=== PATIENT | female | born 1995 | race Caucasian/White ===

== ENCOUNTER 2019-06-06 18:45 | Emergency (ER) | payer SELFPAY ==
[2019-06-06 18:53] VITALS: TEMP 98.4; BMI 19.3
--- NOTE | 2019-06-06 18:53 | PDOC ---
Rapid Medical Evaluation Time Seen by Provider: 06/06/19 18:50 Medical Evaluation: Allergies Allergy/AdvReac Type Severity Reaction Status Date / Time No Known Allergies Allergy Verified 06/06/19 18:50 06/06/19 18:50 I have performed a brief in-person evaluation of this patient. The patient presents with a chief complaint of: 5 weeks w/ vag bleed x 20 minutes w/ some abd pain. Had 1st today but was not bleeding at time of appt per pt. Did not have an US done. No abd pain, dysuria, n/v/f/c Pertinent physical exam findings:stable and in NAD I have ordered the following:labs/UA/US The patient will proceed to the ED for further evaluation Discharge Disposition - Diagnosis First trimester bleeding - Referrals - Patient Instructions - Post Discharge Activity
--- NOTE | 2019-06-06 20:07 | PDOC ---
History of Present Illness - General Chief Complaint: Vaginal Bleeding Stated Complaint: 5 WKS /BLEEDING Time Seen by Provider: 06/06/19 18:50 - History of Present Illness Initial Comments: 06/06/19 20:07 HPI: 23 y/o F 5 weeks gestation by LMP 04/24/19 who had her first visit today presenting with vaginal bleeding that started 3hrs prior to arrival. She said the blood was brownish and the first episode got her underwear and pants wet. 2nd episode was scant blood. No clots or bright red blood. She also reports 1 week of BL lower abd cramping with. Pain is tolerable. She denies fever, chills, ENRIQUE, LH, chest pain, SOB, n/v, dysuria, change in BMs. PMHx: as noted above ROS: as noted SHx: Denies tobacco use; no alcohol use; no rec drugs Allergies: NKDA ROS: GENERAL/CONSTITUTIONAL: No fever or chills. No weakness. HEAD, EYES, EARS, NOSE AND THROAT: No change in vision. No ear pain or discharge. No sore throat. CARDIOVASCULAR: No chest pain or shortness of breath RESPIRATORY: No cough, wheezing, or hemoptysis. GASTROINTESTINAL: No nausea, vomiting, diarrhea or constipation. GENITOURINARY: No dysuria, frequency, or change in urination. MUSCULOSKELETAL: No joint or muscle swelling or pain. No neck or back pain. SKIN: No rash NEUROLOGIC: No headache, vertigo, loss of consciousness, or change in strength/ sensation. ENDOCRINE: No increased thirst. No abnormal weight change HEMATOLOGIC/LYMPHATIC: No anemia, easy bleeding, or history of blood clots. ALLERGIC/IMMUNOLOGIC: No hives or skin allergy. PE: GENERAL: Awake, alert, and fully oriented, no acute distress HEAD: No signs of trauma, normocephalic, atraumatic EYES: EOMI, sclera anicteric, conjunctiva clear ENT: Auricles normal inspection, hearing grossly normal, nares patent, oropharynx clear without exudates. Moist mucosa NECK: Normal ROM, no lymphadenopathy LUNGS: No increased work of breathing, symmetrical chest rise, clear to auscultation bilaterally, no wheezes, crackles or rhonchi HEART: Regular rate, regular rhythm, normal S1 and S2, no murmur, peripheral pulses 2+ and equal bilaterally. ABDOMEN: Soft, nondistended, mild RLQ and suprapubic discomfort, normoactive bowel sounds. No guarding, no rebound. No masses. No CVAT GENITOURINARY: Nml appearing external genitalia, with absent lesions. Vaginal vault with brown blood, no discharge. Cervical os closed. Neg CMT on BM. Neg adenexal ttp, or mass palpated. MUSCULOSKELETAL: Normal inspection, FROM NEUROLOGICAL: Cranial nerves II through XII grossly intact. Normal speech, normal gait, no focal sensorimotor deficits SKIN: Warm, Dry, normal turgor, no rashes or lesions noted Past History - Past Medical History Allergies/Adverse Reactions: Allergies Allergy/AdvReac Type Severity Reaction Status Date / Time No Known Allergies Allergy Verified 06/06/19 18:50 Asthma: Yes COPD: No - Immunization History Immunization Up to Date: Yes - Psycho Social/Smoking Cessation Hx Smoking History: Never smoked Hx Alcohol Use: No Drug/Substance Use Hx: No *Physical Exam - Vital Signs Last Vital Signs Temp Pulse Resp BP Pulse Ox 98.4 F 83 18 125/87 100 06/06/19 18:51 06/06/19 18:51 06/06/19 18:51 06/06/19 18:51 06/06/19 18:51 ED Treatment Course - LABORATORY CBC & Chemistry Diagram: 06/06/19 20:45 06/06/19 20:45 Medical Decision Making - Medical Decision Making 06/07/19 00:19 23 y/o F 5 weeks gestation by LMP 04/24/19 who had her first visit today presenting with vaginal bleeding that started 3hrs prior to arrival associated with 1 week of BL lower abd cramping. VSS, AF. PE with mild RLQ and suprapubic discomfort on palpation. DDx includes uti, threatened . -t&s, cbc, cmp, hcg quant -tvus -ivf, ofirmev 06/07/19 00:37 labs unremarkable patient feels improved TVUS with 6week gestation without cardiac activity likely 2/2 early ; recommending followup patient agrees with plan and no other questions at this time Discharge - Discharge Information Problems reviewed: Yes Clinical Impression/Diagnosis: First trimester bleeding Condition: Stable Disposition: HOME - Follow up/Referral - Patient Discharge Instructions Patient Printed Discharge Instructions: DI for Vaginal Bleeding During Additional Instructions: Additional Instructions: Please return to the emergency department with any new or worsening symptoms or concerns including persistent bleeding, worsening pain, fainting. Please follow up with your Obstretician within 1 week for repeat ultrasound to evaluate for a heart rate You may take tylenol as needed for pain control - Post Discharge Activity
--- NOTE | 2019-06-06 20:52 | PDOC ---
Documentation entered by Liliana Randall SCRIBE, acting as scribe for Erica Klein MD. Erica Klein MD: This documentation has been prepared by the theresaibPrakash chu Lincy, SCRIBE, under my direction and personally reviewed by me in its entirety. I confirm that the documentation accurately reflects all work, treatment, procedures, and medical decision making performed by me. Attending Attestation - Resident Resident Name: Pratima Troy - ED Attending Attestation I have performed the following: I have examined & evaluated the patient, The case was reviewed & discussed with the resident, I agree w/resident's findings & plan, Exceptions are as noted - HPI HPI: 06/06/19 20:54 The patient is a 23-year-old female, , currently 5 weeks by LMP, with no reported past medical history who presents to the emergency department with vaginal spotting since 6:00 pm. The patient reports she had 2 episodes of brownish vaginal bleeding today, denies passing clot or bright red blood. The patient reports associated symptoms of bilateral abdominal cramping for the past week. Denies nausea, vomiting, headache. Allergies: NKA. - Physicial Exam PE: 06/06/19 20:51 With she thinks that she fainted so was the awake alert no acute distress lungs are clear bilaterally heart is regular with any murmurs rubs or gallops abdomen is soft and nontender no rebound no guarding no CVA tenderness pelvic exam there is scant brownish discharge with mucus in the vaginal vault cervical Oz appears to be closed there is mild right adnexal tenderness no palpable adnexal masses. Skin is warm and dry patient is awake alert and oriented x3 - Medical Decision Making 06/06/19 20:51 23-year-old female currently 5 weeks by LMP with complaints of vaginal spotting and lower abdominal cramping. Has not yet had a documented IUP no history of ectopic does have a history of previous 1 miscarriage and 1 elective AB Differential includes threatened AB AB in progress or incomplete AB. Plan type and screen basic labs beta hCG and transvaginal ultrasound 06/06/19 23:38 tvus with iup, pole and yolkd sac. c/w 6 weeks. no detectable FHR. will require repeat fu. blood type RH positive. 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
[2019-06-06] MEDS ORDERED: ACETAMINOPHEN 1000 MG/100 ML VIAL (NON FORMULARY) IVPB ONE (20:55)
[2019-06-06] MEDS ORDERED: ACETAMINOPHEN INJECTION 100 ML IVPB ONE (21:03)
[2019-06-06 21:13] LABS: BASO % 0.6 % (0-2.0); EOS % 2.9 % (0-4.5); HEMATOCRIT 37.4 % (32.4-45.2); HEMOGLOBIN 11.8 GM/dL (10.7-15.3); LYMPH % 22.6 % (8-40); MCH 23.2 pg (25.7-33.7); MCHC 31.6 g/dl (32.0-36.0); MEAN CELL VOLUME 73.4 fl (80-96); MEAN PLT VOLUME 8.9 fl (7.5-11.1); MONO % 9.9 % (3.8-10.2); PLATELET COUNT 308 K/MM3 (134-434); RDW 15.7 % (11.6-15.6); WHITE BLOOD COUNT 7.9 K/mm3 (4.0-10.0)
[2019-06-06 21:25] LABS: PH,URINE 6.5 (5.0-8.0); URINE APPEARANCE CLEAR; URINE BILIRUBIN NEGATIVE (NEGATIVE); URINE COLOR YELLOW; URINE GLUCOSE (UA) NEGATIVE (NEGATIVE); URINE KETONE NEGATIVE (NEGATIVE); URINE LEUK ESTERASE NEGATIVE (NEGATIVE); URINE NITRITE NEGATIVE (NEGATIVE); URINE PROTEIN NEGATIVE (NEGATIVE)
[2019-06-06 23:01] LABS: ALBUMIN 4.7 g/dl (3.4-5.0); BILIRUBIN,TOTAL 0.2 mg/dL (0.2-1); BLOOD UREA NITROGEN 12.1 mg/dL (7-18); CALCIUM 9.2 mg/dL (8.5-10.1); CREATININE 0.6 mg/dL (0.55-1.3); POTASSIUM 3.7 mmol/L (3.5-5.1)
[2019-06-07 00:48] VITALS: BP 120/80; PULSE 82
== END 2019-06-07 00:51 | disposition home or self-care (01) ==
LOC: JER 18:45
PROC: 3E033NZ Introduction of Analgesics, Hypnotics, Sedatives into Peripheral Vein, Percutaneous Approach (ICD-10-PCS; principal; 2019-06-06)
DX: O26.891 Other specified pregnancy related conditions, first trimester (principal); O20.8 Other hemorrhage in early pregnancy; Z3A.01 Less than 8 weeks gestation of pregnancy
CPT/HCPCS: 36415; 76817-TC; 80053; 81003; 84702; 85025; 86850; 86900; 86901; 99283-25; J0131

== ENCOUNTER 2020-01-23 21:25 | Inpatient (IN) | payer OTHER ==
[2020-01-23] MEDS ORDERED: BUTORPHANOL TARTRATE 1 MG/ML VIAL IVPB ONE (23:10)
[2020-01-23] MEDS ORDERED: PROMETHAZINE HCL 25 MG/1 ML VIAL IVPUSH ONE (23:10)
[2020-01-23] MEDS ORDERED: DEXTROSE 5%-LACTATED RINGERS 1,000 ML IV SCH (23:15)
--- NOTE | 2020-01-23 23:17 | HP ---
Past Medical History - Admission Chief Complaint: Labor pain History of Present Illness: 24 yo , @ 39 weeks gestation, EDC 01/29/20, admitted for labor pain. Upon admission she was 4cm dilated with intact membrane. History Source: Patient Limitations to Obtaining History: No Limitations - Past Surgical History Past Surgical History: Yes: None Hx Myomectomy: No Hx Transabdominal Cerclage: No - Smoking History Smoking history: Never smoked - Alcohol/Substance Use Hx Alcohol Use: No - Social History Usual Living Arrangement: Yes: With Significant Other History of Recent Travel: No Home Medications - Allergies Allergies/Adverse Reactions: Allergies Allergy/AdvReac Type Severity Reaction Status Date / Time No Known Allergies Allergy Verified 06/06/19 18:50 Family Medical History Family History: Unremarkable Review of Systems - Review of Systems Constitutional: reports: No Symptoms Eyes: reports: No Symptoms HENT: reports: No Symptoms Neck: reports: No Symptoms Cardiovascular: reports: No Symptoms Respiratory: reports: No Symptoms Gastrointestinal: reports: No Symptoms Genitourinary: reports: Pain Breasts: reports: No Symptoms Reported Musculoskeletal: reports: No Symptoms Neurological: reports: No Symptoms Endocrine: reports: No Symptoms Psychiatric: reports: No Symptoms Pain Intensity: 6 Physical Exam - Maternity Constitutional: Yes: Well Nourished Eyes: Yes: Conjunctiva Clear HENT: Yes: Atraumatic Neck: Yes: Supple Cardiovascular: Yes: Regular Rate and Rhythm Lungs: Clear to auscultation - Abdominal Exam/OB Number of Fetuses: Single Presentation: Vertex Contractions: Yes Regularity: Regular Intensity: Moderate Category: I Decelerations: None - Vaginal Exam/OB Vaginal Bleeding: Light Dilatation (cm): 4 Effacement (%): 80 Amniotic Membrane Status: Intact Presentation: Vertex/Position Station: -3 - Physical Exam Musculoskeletal: Yes: WNL Extremities: Yes: WNL ...Motor Strength: WNL Psychiatric: Yes: Alert, Oriented Problem List - Problems (1) 39 weeks gestation of Problems reviewed: Yes Code(s): Z3A.39 - 39 WEEKS GESTATION OF Assessment/Plan 39 weeks gestation Labor pain Admit to L&D Analgesia as needed Anticipate
[2020-01-23] MEDS: ELECTROLYTE-148 SOLN 1,000 ML IV SCH (23:30)
[2020-01-24] MEDS ORDERED: PCA PUMP NR ONE ×2 (00:56→14:27)
[2020-01-24] MEDS ORDERED: FENTANYL/BUPIVACAINE/NS/PF - PCEA - 50 ML DISP.SYRIN EP ONE ×2 (00:56→06:52)
[2020-01-24 01:06] LABS: BASO % 0.6 % (0-2.0); EOS % 1.2 % (0-4.5); HEMATOCRIT 29.2 % (32.4-45.2); HEMOGLOBIN 9.2 GM/dL (10.7-15.3); LYMPH % 15.7 % (8-40); MCH 22.3 pg (25.7-33.7); MCHC 31.3 g/dl (32.0-36.0); MEAN CELL VOLUME 71.3 fl (80-96); MEAN PLT VOLUME 9.3 fl (7.5-11.1); MONO % 8.6 % (3.8-10.2); NEUT % 73.9 % (42.8-82.8); PLATELET COUNT 265 K/MM3 (134-434); RDW 17.6 % (11.6-15.6); WHITE BLOOD COUNT 12.2 K/mm3 (4.0-10.0)
[2020-01-24 01:07] LABS: INR 0.92 (0.83-1.09); PROTHROMBIN TIME (PATIENT) 10.8 SEC (9.7-13.0)
[2020-01-24 01:08] VITALS: BMI 23.9
[2020-01-24 01:10] LABS: ACTIVATED PTT 26.8 SECONDS (25.2-36.5)
[2020-01-24 01:33] LABS: ALBUMIN 2.7 g/dl (3.4-5.0); BILIRUBIN,TOTAL 0.4 mg/dL (0.2-1); BLOOD UREA NITROGEN 6.7 mg/dL (7-18); CALCIUM 8.7 mg/dL (8.5-10.1); CREATININE 0.5 mg/dL (0.55-1.3); POTASSIUM 3.8 mmol/L (3.5-5.1); TOT PROT 6.7 g/dl (6.4-8.2)
[2020-01-24] MEDS ORDERED: BUPIVACAINE HCL/PF 0.25% (2.5MG/ML) 10 ML VIAL ONE ×2 (01:52→07:53)
[2020-01-24] MEDS: FENTANYL/BUPIVACAINE/NS/PF - PCEA - 50 ML DISP.SYRIN EP SCH (02:11)
[2020-01-24] MEDS ORDERED: NALOXONE HCL 0.4 MG/ML VIAL IVPUSH PRN (02:12)
[2020-01-24] MEDS ORDERED: OXYTOCIN 30 UNITS in 0.9% NS 30 UNIT/500 ML INFUS.BAG IVPB SCH (06:00)
[2020-01-24] MEDS ORDERED: LIDOCAINE HCL 1% PRESERVATIVE FREE - 30ML VIAL ONE (09:19)
[2020-01-24] MEDS ORDERED: OXYTOCIN 20 UNITS in 0.9% NS 20 UNIT/1,000 ML INFUS.BAG IV ONE (09:20)
[2020-01-24 09:32] LABS: COCAINE, UR NEGATIVE ng/ml (CUTOFF=300); OPIATES, URI NEGATIVE ng/ml (CUTOFF=300); PHENCYCLIDINE,URINE NEGATIVE ng/ml (CUTOFF=25); URINE BARBITURATES NEGATIVE ng/ml (CUTOFF=200)
[2020-01-24 09:36] LABS: METHADONE, UR NEGATIVE ng/ml (CUTOFF=300); URINE AMPHETAMINES NEGATIVE ng/ml (CUTOFF=500); URINE BENZODIAZEPINES NEGATIVE ng/ml (CUTOFF=200)
[2020-01-24] MEDS ORDERED: WITCH HAZEL 50% (TUCKS) 40 PAD/JAR PAD TP PRN (11:57)
[2020-01-24] MEDS ORDERED: METHYLERGONOVINE MALEATE 0.2 MG/1 ML AMP IM PRN (11:57)
[2020-01-24] MEDS ORDERED: BENZOCAINE 20% 57 GM BOTTLE TP PRN (11:57)
[2020-01-24] MEDS ORDERED: BENZOCAINE 28 GM HEMORRHOIDAL OINTMENT TP PRN (11:57)
[2020-01-24] MEDS ORDERED: BISACODYL 10 MG SUPP.RECT RC PRN (11:57)
[2020-01-24] MEDS ORDERED: OXYTOCIN 20 UNITS in 0.9% NS 20 UNIT/1,000 ML INFUS.BAG IV SCH (12:00)
--- NOTE | 2020-01-24 12:03 | PN ---
Delivery - Delivery Vaginal Delivery: Spontaneous Type of Anesthesia: Epidural Episiotomy/Laceration: Midline, 3rd degree EBL (cc): 350 Remarks - Remarks Remarks: Normal spontaneous vaginal delivery of a live infant boy over midline episiotomy extended to third degree laceration. Nose/ Oropharynx suctioned @ perineum. Nuchal cord x 1 clamped and cut. Baby handed to mother then to nurse. Placenta expelled spontaneously intact. Episiotomy repaired in layers with 2.0 Chromic and 2.0 Biosyn.
[2020-01-24] MEDS ORDERED: ACETAMINOPHEN 325 MG TABLET (FP) ONE (12:27)
[2020-01-24] MEDS: ACETAMINOPHEN 325 MG TABLET (FP) PO PRN (12:30)
[2020-01-24] MEDS: FERROUS SO4 325 MG TABLET (FP) PO SCH (22:15)
[2020-01-24] MEDS: ELECTROLYTE-148 SOLN 1,000 ML IV SCH (23:56)
[2020-01-25] MEDS: FENTANYL/BUPIVACAINE/NS/PF - PCEA - 50 ML DISP.SYRIN EP SCH (03:24)
[2020-01-25] MEDS: ACETAMINOPHEN 325 MG TABLET (FP) PO PRN ×2 (03:26→14:30)
[2020-01-25] MEDS: IBUPROFEN 600 MG TABLET (FP) PO PRN ×2 (03:27→14:31)
[2020-01-25 08:39] LABS: BASO % 0.3 % (0-2.0); EOS % 0.5 % (0-4.5); HEMATOCRIT 22.7 % (32.4-45.2); MCH 22.4 pg (25.7-33.7); MCHC 30.9 g/dl (32.0-36.0); MEAN CELL VOLUME 72.5 fl (80-96); MEAN PLT VOLUME 9.1 fl (7.5-11.1); MONO % 8.6 % (3.8-10.2); NEUT % 77.6 % (42.8-82.8); PLATELET COUNT 190 K/MM3 (134-434); RBC 3.13 M/mm3 (3.60-5.2); RDW 17.6 % (11.6-15.6); WHITE BLOOD COUNT 15.9 K/mm3 (4.0-10.0)
[2020-01-25] MEDS: FERROUS SO4 325 MG TABLET (FP) PO SCH ×2 (09:55→23:05)
[2020-01-25] MEDS: PRENATAL VITAMINS W/ FOLIC ACID TABLET (FP) PO SCH (09:55)
--- NOTE | 2020-01-25 11:44 | PN ---
Post Progress Note - Subjective Subjective: 24 yo Para 1 status post vaginal delivery, seen and evaluated. Doing well. Post Day: 1 Type of Delivery: Vital Signs: Vital Signs Temperature 97.7 F 01/25/20 09:50 Pulse Rate 90 01/25/20 09:50 Respiratory Rate 18 01/25/20 09:50 Blood Pressure 110/74 01/25/20 09:50 O2 Sat by Pulse Oximetry (%) 98 01/25/20 09:50 Breast Exam: Yes: Soft Uterus: Yes: Fundus Firm Abdomen/GI: Yes: Abdomen soft, Other Lochia: Yes: Rubra Lochia, amount: Moderate Extremities: Yes: Calves non-tender Perineum: Yes: Episiotomy (Healing) Activity: Ambulating - Labs Labs: CBC WBC 15.9 K/mm3 (4.0-10.0) H 01/25/20 07:40 RBC 3.13 M/mm3 (3.60-5.2) L 01/25/20 07:40 Hgb 7.0 GM/dL (10.7-15.3) L 01/25/20 07:40 Hct 22.7 % (32.4-45.2) L D 01/25/20 07:40 MCV 72.5 fl (80-96) L 01/25/20 07:40 MCH 22.4 pg (25.7-33.7) L 01/25/20 07:40 MCHC 30.9 g/dl (32.0-36.0) L 01/25/20 07:40 RDW 17.6 % (11.6-15.6) H 01/25/20 07:40 Plt Count 190 K/MM3 (134-434) D 01/25/20 07:40 MPV 9.1 fl (7.5-11.1) 01/25/20 07:40 Absolute Neuts (auto) 12.3 K/mm3 (1.5-8.0) H 01/25/20 07:40 Neutrophils % 77.6 % (42.8-82.8) 01/25/20 07:40 Lymphocytes % 13.0 % (8-40) 01/25/20 07:40 Monocytes % 8.6 % (3.8-10.2) 09/06/20 07:40 Eosinophils % 0.5 % (0-4.5) 01/25/20 07:40 Basophils % 0.3 % (0-2.0) 01/25/20 07:40 Nucleated RBC % 0 % (0-0) 01/25/20 07:40 Problem List - Problems (1) 39 weeks gestation of Problems reviewed: Yes Code(s): Z3A.39 - 39 WEEKS GESTATION OF (2) Status post normal delivery Problems reviewed: Yes Assessment/Plan Status post normal vaginal delivery Stable Continue care
[2020-01-25 16:09] LABS: BASO % 0.3 % (0-2.0); EOS % 1.6 % (0-4.5); HEMATOCRIT 23.3 % (32.4-45.2); HEMOGLOBIN 7.4 GM/dL (10.7-15.3); LYMPH % 13.3 % (8-40); MCH 22.9 pg (25.7-33.7); MCHC 31.7 g/dl (32.0-36.0); MEAN CELL VOLUME 72.3 fl (80-96); MEAN PLT VOLUME 8.3 fl (7.5-11.1); NEUT % 76.8 % (42.8-82.8); PLATELET COUNT 215 K/MM3 (134-434); RBC 3.22 M/mm3 (3.60-5.2); RDW 17.9 % (11.6-15.6); WHITE BLOOD COUNT 15.6 K/mm3 (4.0-10.0)
[2020-01-25] MEDS ORDERED: SENNOSIDES/DOCUSATE COMBO (SENNA PLUS) TABLET (UD) PO PRN (22:00)
[2020-01-26] MEDS: IBUPROFEN 600 MG TABLET (FP) PO PRN ×2 (06:35→12:21)
[2020-01-26] MEDS: ACETAMINOPHEN 325 MG TABLET (FP) PO PRN ×2 (06:35→12:22)
[2020-01-26] MEDS: PRENATAL VITAMINS W/ FOLIC ACID TABLET (FP) PO SCH (09:56)
[2020-01-26] MEDS: FERROUS SO4 325 MG TABLET (FP) PO SCH (09:56)
[2020-01-26 13:11] VITALS: BP 110/68; PULSE 88; TEMP 98
--- NOTE | 2020-01-28 14:53 | DS ---
Physical Exam-WASTEWATER OPERATOR Vital Signs: Vital Signs Temperature 98 F 01/26/20 10:00 Pulse Rate 88 01/26/20 10:00 Respiratory Rate 20 01/26/20 10:00 Blood Pressure 110/68 01/26/20 10:00 O2 Sat by Pulse Oximetry (%) 100 01/26/20 10:00 Constitutional: Yes: No Distress Eyes: Yes: Conjunctiva Clear HENT: Yes: Atraumatic Neck: Yes: Supple Cardiovascular: Yes: Regular Rate and Rhythm Respiratory: Yes: Regular Gastrointestinal: Yes: Normal Bowel Sounds Pelvis: Yes: WNL Vaginal Exam: Yes: Normal Cervix: Yes: Normal Uterus: Yes: Firm ....Post : Yes: Uterus firm, Moderate lochia serosa Extremities: Yes: WNL Neurological: Yes: Alert, Oriented ...Motor Strength: WNL Psychiatric: Yes: Alert, Oriented Labs: CBC, BMP 01/25/20 15:59 01/24/20 00:20 Delivery - Delivery Vaginal Delivery: Spontaneous Type of Anesthesia: Local, Epidural Episiotomy/Laceration: Midline, 3rd degree EBL (cc): 350 Delivery, Single - Stages of Labor Date 1st Stage Initiatied: 01/24/20 Time 1st Stage Initiated: 01:30 Date 2nd Stage Initiated: 01/24/20 Time 2nd Stage Initiated: 09:15 Date of Delivery: 01/24/20 Time of Delivery: 11:05 Time Placenta Delivered: 11:10 - 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: No Infant Gender: Male Weight: 7 lb 14 oz Position: Left, OP Total Hours ROM (Hrs/Mins): 5h21m - 1 Minute Total Score: 9 5 Minutes Total Score: 9 - Feeding Plan Initial Plan: Elected not to breastfeed exclusively throughout hospitalization Discharge Summary Problems reviewed: Yes Reason For Visit: LABOR ADMIT Procedures: Principal: Normal spontaneous vaginal delivery Hospital Course: Routine care Health Concerns: None Plan of Treatment: Analgesia as needed F/U in clinic in 4 weeks Goals: Resume regular activities in 6 weeks Condition: Good - Instructions Diet, Activity, Other Instructions: Regular diet No douching, no sexual intercourse x 4 weeks F/U in clinic in 6 weeks Disposition: HOME - Home Medications Comprehensive Discharge Medication List: Ambulatory Orders Ferrous Sulfate [Feosol] 325 mg PO BID 45 Days #90 tablet 01/26/20
== END 2020-01-26 12:45 | disposition home or self-care (01) | DRG 542 ==
LOC: JDEL 21:25 → JLDR 22:30 → J3W 01-24 15:30
PROVIDERS: ADMIT Obstetrics & Gynecology; ATTEND Obstetrics & Gynecology
PROC: 10E0XZZ Delivery of Products of Conception, External Approach (ICD-10-PCS; principal; 2020-01-24)
PROC: 0DQR0ZZ Repair Anal Sphincter, Open Approach (ICD-10-PCS; 2020-01-24)
DX: O70.20 Third degree perineal laceration during delivery, unspecified (principal); Z3A.39 39 weeks gestation of pregnancy; Z37.0 Single live birth
CPT/HCPCS: 36415; 59409; 80048; 80053; 80307; 85025; 85610; 85730; 86762; 86780; 86850; 86900; 86901; 87340; 87389; U0003